=== PATIENT | male | born 1995 | race Caucasian/White ===

== ENCOUNTER 2017-02-13 07:45 | Emergency (ER) | payer OTHER ==
[2017-02-13 07:58] VITALS: BP 147/81
--- NOTE | 2017-02-13 08:17 | UC ---
Skin Complaint HPI - HPI Summary HPI Summary: He was clipping his toenail about a week ago and had a hanging toe nail that he pulled. He now has redness, bleeding, swelling, tenderness of the distal right great toe. He denies dm. NO fevers or chills. the nail was not ingrown to begin with. it hurts to touch and to walk on it. - History of Current Complaint Chief Complaint: UCLowerExtremity Time Seen by Provider: 02/13/17 08:11 Stated Complaint: RIGHT FOOT SKIN COMPLAINT Hx Obtained From: Patient, Family/Muff Winder Onset/Duration: Gradual Onset, Lasting Days Skin Exposure Onset/Duration: Days Ago Onset Severity: Mild Current Severity: Moderate Location: Discrete Aggravating Factor(s): Touch Alleviating Factor(s): Other - rest Associated Signs & Symptoms: Positive: Drainage - draining blood this morning.. Negative: Nausea, Vomiting, Diaphoresis, Weakness, Shivering, Fever, Chills - Allergy/Home Medications Allergies/Adverse Reactions: Allergies Allergy/AdvReac Type Severity Reaction Status Date / Time seasonal Allergy Congestion Uncoded 02/13/17 07:58 Review of Systems Skin: Other - toe redness and swelling. All Other Systems Reviewed And Are Negative: Yes PMH/Surg Hx/FS Hx/Imm Hx Previously Healthy: Yes - Surgical History Surgical History: None - Family History Known Family History: Positive: Other - no related family history. - Social History Occupation: Student Alcohol Use: Weekly Alcohol Amount: 6 Substance Use Type: None Smoking Status (MU): Never Smoked Tobacco - Immunization History Most Recent Influenza Vaccination: NOT THIS SEASON Most Recent Tetanus Shot: UNKNOWN Vaccination Up to Date: Yes Physical Exam Triage Information Reviewed: Yes Appearance: Well-Appearing, No Pain Distress, Well-Nourished Vital Signs: Initial Vital Signs Temp 99.3 F 02/13/17 07:49 Pulse 102 02/13/17 07:49 Resp 20 02/13/17 07:49 BP 147/81 02/13/17 07:49 Vital Signs Reviewed: Yes Eye Exam: Normal ENT Exam: Normal Dental Exam: Normal Neck exam: Normal Respiratory Exam: Normal Cardiovascular Exam: Normal Abdominal Exam: Normal Neurological Exam: Normal Psychological Exam: Normal Skin Exam: Other - right great toe distal redness and swelling. There are no signs of streaking or fluctuance, with pressure there is some drainage of blood. no puss. No signs of ingrown nail right now. Course/Dx - Course Course Of Treatment: localized cellulitis of the right great toe. no obvious ingrown toenail. They believe they got a tdap right before college. they are refusing one now. they do agree to f/u for any signs of worsening such as increased swelling, pain, redness. - Diagnoses Provider Diagnoses: right great toe cellulitis Discharge - Discharge Plan Condition: Good Disposition: HOME Prescriptions: Ciprofloxacin TAB* [Cipro 500 MG TAB*] 500 mg PO BID #14 tab Dicloxacillin CAP* [Dynapen CAP*] 500 mg PO TID #21 cap Patient Education Materials: Paronychia (ED), Cellulitis (ED) Referrals: Mohsen Tucker MD [Primary Care Provider] - If Needed
== END 2017-02-13 08:37 | disposition home or self-care (01) ==
LOC: UCCORT 07:45
DX: L03.031 Cellulitis of right toe (principal); J30.2 Other seasonal allergic rhinitis
CPT/HCPCS: 99212; G0463

== ENCOUNTER 2017-08-13 09:22 | Emergency (ER) | payer OTHER ==
[2017-08-13 10:02] VITALS: BP 151/74
--- NOTE | 2017-08-13 10:35 | UC ---
Ear Complaint HPI - HPI Summary HPI Summary: 22 year old male with ear concern. c/o wax build up in bilateral ears. States Tuesday, got water in the ear and feels now with L ear pain. [ End ] - History of Current Complaint Chief Complaint: UCEar Stated Complaint: EAR PAIN Time Seen by Provider: 08/13/17 10:10 Hx Obtained From: Patient Onset/Duration: Gradual Onset Severity Initially: Mild Severity Currently: Moderate Pain Intensity: 0 Associated Signs/Symptoms: Negative: Discharge, Hearing Loss - Allergies/Home Medications Allergies/Adverse Reactions: Allergies Allergy/AdvReac Type Severity Reaction Status Date / Time seasonal Allergy Congestion Uncoded 08/13/17 09:57 Home Medications: Home Medications D-Methorphan/PE/Acetaminophen [Daytime Cold Multi-Symp Gelcap] 2 cap PO TID PRN 08/13/17 [History Confirmed 08/13/17] PMH/Surg Hx/FS Hx/Imm Hx Previously Healthy: Yes - Surgical History Surgical History: None - Family History Known Family History: Positive: Other - no related family history. - Social History Occupation: [employer] Lives: With Family Alcohol Use: Occasionally Alcohol Amount: 6 Substance Use Type: None Smoking Status (MU): Never Smoked Tobacco - Immunization History Most Recent Influenza Vaccination: NOT THIS SEASON Most Recent Tetanus Shot: UNKNOWN Vaccination Up to Date: Yes Review of Systems Constitutional: Negative Skin: Negative Eyes: Negative ENT: Ear Ache Respiratory: Negative Cardiovascular: Negative Gastrointestinal: Negative Genitourinary: Negative Motor: Negative Neurovascular: Negative Musculoskeletal: Negative Neurological: Negative Psychological: Negative Is Patient Immunocompromised?: No All Other Systems Reviewed And Are Negative: Yes Physical Exam Triage Information Reviewed: Yes Appearance: Well-Appearing, No Pain Distress, Well-Nourished Vital Signs: Initial Vital Signs Temp 98.6 F 08/13/17 09:58 Pulse 89 08/13/17 09:58 Resp 18 08/13/17 09:58 BP 151/74 08/13/17 09:58 Pulse Ox 99 08/13/17 09:58 Vital Signs Reviewed: Yes Eye Exam: Normal ENT: Positive: Pharynx normal, TM bulging, TM dull, TM red - left, Other - ears occluded with cerumen - removed via irrigation Neck exam: Normal Respiratory Exam: Normal Cardiovascular Exam: Normal Neurological Exam: Normal Psychological Exam: Normal Skin Exam: Normal Ear Complaint Course/Dx - Differential Dx/Diagnosis Differential Diagnosis/HQI/PQRI: Otitis Externa, Otitis Media, Perforated TM, URI Provider Diagnoses: 1) Cerumen impaction b/l. 2) Left AOM. 3) elevated BP due to UC setting Discharge - Sign-Out/Discharge Documenting (check all that apply): Discharge - Discharge Plan Condition: Good Disposition: HOME Prescriptions: Amoxicillin PO (*) [Amoxicillin 875 MG (*)] 875 mg PO BID 10 Days #20 tab Patient Education Materials: Ear Infection (ED) Referrals: Mohsen Tucker MD [Primary Care Provider] - 4 Days (if any concerns ) - Billing Disposition and Condition Condition: GOOD Disposition: HOME
== END 2017-08-13 10:46 | disposition home or self-care (01) ==
LOC: UCCORT 09:22
DX: H61.23 Impacted cerumen, bilateral (principal); H66.92 Otitis media, unspecified, left ear; R03.0 Elevated blood-pressure reading, without diagnosis of hypertension
CPT/HCPCS: 99213; G0463